=== PATIENT | female | born 1980 | race African-American/Black ===

== ENCOUNTER 2016-08-10 10:45 | Emergency (ER) | payer MEDICAID ==
[~2016-08-10] VITALS: Ht 167.6 cm; Wt 100.0 kg
[2016-08-10] MEDS ORDERED: SODIUM CHLORIDE 0.9% 1,000 ML IV ONE (12:56)
[2016-08-10] MEDS ORDERED: ACETAMINOPHEN 325MG TABLET PO STA (12:56)
[2016-08-10 13:42] LABS: CLARITY URINE CLEAR (CLEAR); COLOR URINE YELLOW (YELLOW); GLUCOSE URINE NEGATIVE (NEGATIVE); KETONES URINE NEGATIVE (NEGATIVE); LEUKOCYTE ESTERASE URINE NEGATIVE (NEGATIVE); NITRITE URINE NEGATIVE (NEGATIVE); OCCULT BLOOD URINE NEGATIVE (NEGATIVE); PH URINE 5.5 (4.5-8.0); PROTEIN URINE NEGATIVE (NEGATIVE); UROBILINOGEN URINE 0.2 E.U./dL (0.2-1.0)
[2016-08-10 14:08] LABS: BASOPHILS % 0.5 % (0.0-2.0); EOSINOPHILS % 3.7 % (0.0-5.0); HEMOGLOBIN. 12.8 g/dL (12.0-16.0); LYMPHOCYTES % 32.3 % (20.0-50.0); MEAN CORPUSCULAR HEMOGLOBIN 31.6 pg (28.0-32.0); MEAN CORPUSCULAR HGB CONC 33.7 g/dL (31.0-37.0); MEAN CORPUSCULAR VOLUME 93.7 fL (81.0-99.0); MEAN PLATELET VOLUME 8.6 fl (7.4-10.4); MONOCYTES % 8.6 % (2.0-8.0); NEUTROPHILS % 54.9 % (40.0-76.0); PLATELET 223 x1000/uL (130-400); RED BLOOD CELL COUNT 4.06 mill/uL (4.2-5.4); RED CELL DISTRIBUTION WIDTH 13.2 % (11.6-14.6); WHITE BLOOD COUNT 9.1 x1000/uL (4.5-11.0)
[2016-08-10 14:11] LABS: CHLORIDE 109 mEq/L (98-107); INDEX HEMOLYSI 2 (1-3); INDEX ICTERIC 1 (1-4); INDEX LIPEMIC 1 (1-3)
[2016-08-10 14:16] LABS: ALBUMIN 3.3 g/dL (3.4-5.0); ANION GAP 11; CALCIUM 9.1 mg/dL (8.5-10.1); CARBON DIOXIDE 25 mEq/L (21-32); UREA NITROGEN BLOOD 23 mg/dL (7-21)
[2016-08-10 14:20] LABS: ALANINE AMINOTRANSFERASE 21 IU/L (13-61); eGFR > 60 mL/min (>60)
[2016-08-10 15:00] VITALS: BP 121/76
== END 2016-08-10 15:24 | disposition home or self-care (01) ==
LOC: ER 10:54
DX: R35.8 Other polyuria (principal); G44.209 Tension-type headache, unspecified, not intractable; F17.200 Nicotine dependence, unspecified, uncomplicated
CPT/HCPCS: 36415; 71010; 80053; 81003; 81025; 85025; 93005; 96360; 96361; 99285; J7030

== ENCOUNTER 2017-05-15 08:43 | Emergency (ER) | payer MEDICAID ==
[~2017-05-15] VITALS: Ht 167.6 cm; Wt 100.0 kg
[2017-05-15 10:01] VITALS: BP 122/74
== END 2017-05-15 10:29 | disposition home or self-care (01) ==
LOC: ER 09:38
DX: M25.511 Pain in right shoulder (principal); F17.200 Nicotine dependence, unspecified, uncomplicated; Z90.49 Acquired absence of other specified parts of digestive tract
CPT/HCPCS: 99282

== ENCOUNTER 2017-05-20 07:50 | Emergency (ER) | payer MEDICAID ==
[~2017-05-20] VITALS: Ht 167.6 cm; Wt 88.0 kg
[2017-05-20 11:35] VITALS: BP 138/74
[2017-05-20] MEDS ORDERED: KETOROLAC 30MG/ML VIAL IM ONE (12:00)
[2017-05-20] MEDS ORDERED: PREDNISONE 20MG TABLET PO SCH (12:00)
== END 2017-05-20 11:58 | disposition home or self-care (01) ==
LOC: ER 08:08
DX: M54.12 Radiculopathy, cervical region (principal); Z90.49 Acquired absence of other specified parts of digestive tract
CPT/HCPCS: 29125; 96372; 99283; J1885; J7512

== ENCOUNTER 2017-11-12 05:15 | Emergency (ER) | payer MEDICAID ==
[~2017-11-12] VITALS: Ht 167.6 cm; Wt 88.0 kg
[2017-11-12] MEDS ORDERED: HYDROCODONE/ACETAMINOPHEN 5/325MG TABLET PO ONE (07:45)
[2017-11-12] MEDS ORDERED: CYCLOBENZAPRINE 10MG TABLET PO ONE (10:30)
[2017-11-12] MEDS ORDERED: KETOROLAC 60MG/2ML VIAL IM ONE (10:30)
[2017-11-12 10:34] VITALS: BP 123/86
== END 2017-11-12 11:14 | disposition home or self-care (01) ==
LOC: ER 05:15
DX: S43.401A Unspecified sprain of right shoulder joint, initial encounter (principal); X58.XXXA Exposure to other specified factors, initial encounter; Y93.9 Activity, unspecified; Y92.9 Unspecified place or not applicable; F17.210 Nicotine dependence, cigarettes, uncomplicated
CPT/HCPCS: 73030; 81025; 96372; 99284; J1885; Z7610; A4565

== ENCOUNTER 2023-03-10 08:48 | Emergency (ER) | payer MEDICAID, OTHER ==
[~2023-03-10] VITALS: Ht 165.1 cm; Wt 82.0 kg
[~2023-03-10 08:48] MED LIST: NAPR-681 PO
[2023-03-10 08:52] VITALS: TEMP 97.9; O2SAT 99
[2023-03-10] MEDS ORDERED: KETOROLAC 60MG/2ML VIAL IM ONE (09:30)
[2023-03-10] MEDS ORDERED: IBUP-2029 MT (09:30)
[2023-03-10 10:01] VITALS: BP 128/85; PULSE 66; RESP 15
== END 2023-03-10 10:19 | disposition home or self-care (01) ==
LOC: ER 09:30
DX: S93.402A Sprain of unspecified ligament of left ankle, initial encounter (principal); W50.2XXA Accidental twist by another person, initial encounter; Y93.89 Activity, other specified; Y92.89 Other specified places as the place of occurrence of the external cause; Y99.8 Other external cause status
CPT/HCPCS: 81025; 73610; 96372; 99283; J1885; Z7610

== ENCOUNTER 2024-12-12 12:11 | Emergency (ER) | payer OTHER ==
[~2024-12-12] VITALS: Ht 167.6 cm; Wt 71.0 kg
[~2024-12-12 12:11] MED LIST changes: +IBUP-1455 MT
[2024-12-12 15:08] VITALS: BP 111/75; PULSE 98; RESP 18; TEMP 37.1; O2SAT 100
== END 2024-12-12 15:15 | disposition home or self-care (01) ==
LOC: ER 12:26
DX: Z02.79 Encounter for issue of other medical certificate (principal); Z90.49 Acquired absence of other specified parts of digestive tract; F10.90 Alcohol use, unspecified, uncomplicated; Z98.890 Other specified postprocedural states; Z79.899 Other long term (current) drug therapy; Y90.9 Presence of alcohol in blood, level not specified
CPT/HCPCS: 99281